=== PATIENT | female | born 1930 | race Caucasian/White ===

== ENCOUNTER 2016-03-20 15:42 | Outpatient (CLI) | payer MEDICARE ==
[2016-03-20 16:14] LABS: ALT (SGPT) 15 U/L (0-55); AST (SGOT) 21 U/L (5-34); Alkaline Phosphatase 76 U/L (40-150); Anion Gap 15 mmol/L (10-20); BUN (Urea Nitrogen) 32 mg/dL (9.8-20.1); Bilirubin, Total 0.5 mg/dL (0.2-1.2); Calc. Creatinine Clearance 0 mL/min (70-130); Calcium 9.2 mg/dL (7.8-10.44); Carbon Dioxide 27 mmol/L (23-31); Chloride 104 mmol/L (98-107); Estimated GFR-MDRD 39; Globulin 3.3 g/dL (2.4-3.5); Magnesium 1.9 mg/dL (1.6-2.6); Protein, Total 7.3 g/dL (5.8-8.1)
== END 2016-03-20 15:43 | disposition home or self-care (01) ==
LOC: NAV LAB 15:42
PROVIDERS: ATTEND Family Medicine
DX: E21.0 Primary hyperparathyroidism (principal)
CPT/HCPCS: 36415; 80053; 83735; 84100

== ENCOUNTER 2016-05-04 16:15 | Outpatient (CLI) | payer MEDICARE ==
[2016-05-04 16:49] LABS: Anion Gap 15 mmol/L (10-20); BUN (Urea Nitrogen) 29 mg/dL (9.8-20.1); Calc. Creatinine Clearance 0 mL/min (70-130); Calcium 9.1 mg/dL (7.8-10.44); Carbon Dioxide 27 mmol/L (23-31); Chloride 105 mmol/L (98-107); Estimated GFR-MDRD 40; Magnesium 1.8 mg/dL (1.6-2.6); Phosphorus 3.4 mg/dL (2.3-4.7)
== END 2016-05-04 16:16 | disposition home or self-care (01) ==
LOC: NAV LAB 16:15
PROVIDERS: ATTEND Family Medicine
DX: E89.2 Postprocedural hypoparathyroidism (principal); E21.0 Primary hyperparathyroidism; E83.51 Hypocalcemia; E83.42 Hypomagnesemia
CPT/HCPCS: 36415; 80048; 83735; 84100

== ENCOUNTER 2016-05-31 18:45 | Outpatient (CLI) | payer MEDICARE ==
[2016-05-31 19:19] LABS: Anion Gap 16 mmol/L (10-20); BUN (Urea Nitrogen) 35 mg/dL (9.8-20.1); Calc. Creatinine Clearance 0 mL/min (70-130); Calcium 9.3 mg/dL (7.8-10.44); Carbon Dioxide 28 mmol/L (23-31); Chloride 103 mmol/L (98-107); Estimated GFR-MDRD 35; Glucose 98 mg/dL (83-110); Magnesium 1.7 mg/dL (1.6-2.6); Phosphorus 3.8 mg/dL (2.3-4.7); Potassium 4.6 mmol/L (3.5-5.1); Sodium 142 mmol/L (136-145)
== END 2016-05-31 18:46 | disposition home or self-care (01) ==
LOC: NAV LAB 18:45
PROVIDERS: ATTEND Family Medicine
DX: E89.2 Postprocedural hypoparathyroidism (principal)
CPT/HCPCS: 36415; 80048; 83735; 84100

== ENCOUNTER 2016-06-13 14:41 | Outpatient (CLI) | payer MEDICARE | END 2016-06-13 14:42 | disposition home or self-care (01) | LOC: NAV LAB 14:41 | PROVIDERS: ATTEND Family Medicine | DX: E89.2 Postprocedural hypoparathyroidism (principal) | CPT/HCPCS: 36415; 83970 ==

== ENCOUNTER 2016-06-28 19:03 | Outpatient (CLI) | payer MEDICARE ==
[2016-06-28 19:37] LABS: #Basophils 0.1 thou/uL (0.0-0.2); #Eosinphils 0.1 thou/uL (0.0-0.7); #Monocytes 0.5 thou/uL (0.11-0.59); %Basophils 1.6 % (0.0-1.0); %Eosinophils 2.3 % (0.0-10.0); %Lymphocytes 35.5 % (21.0-51.0); %Monocytes 7.9 % (0.0-10.0); %Neutrophils 52.7 % (42.0-75.0); Hemoglobin 12.3 g/dL (12.0-16.0); Mean Corpuscular HGB CONC 32.7 g/dL (32.0-36.0); Mean Corpuscular Hemoglobin 30.7 pg (27.0-31.0); Mean Corpuscular Volume 94.1 fl (81.0-99.0); Mean Platelet Volume 8.1 fL (7.4-10.4); Platelet Count 208 thou/uL (130-400); RBC Distribution Width 12.7 % (11.5-14.5); Red Blood Cell (RBC) Count 4.02 mill/uL (4.20-5.40); White Blood Cell (WBC) Count 5.7 thou/uL (4.8-10.8)
[2016-06-28 19:57] LABS: Anion Gap 17 mmol/L (10-20); BUN (Urea Nitrogen) 30 mg/dL (9.8-20.1); Calc. Creatinine Clearance 0 mL/min (70-130); Calcium 9.6 mg/dL (7.8-10.44); Carbon Dioxide 26 mmol/L (23-31); Chloride 104 mmol/L (98-107); Estimated GFR-MDRD 38; Glucose 90 mg/dL (83-110); Iron 77 ug/dL (50-170); Potassium 4.5 mmol/L (3.5-5.1); Sodium 142 mmol/L (136-145)
[2016-06-29 18:17] LABS: Iron Binding Capacity, Total 368 mcg/dL (265-497)
[2016-06-29 18:28] LABS: Creatinine, Urine 73.17 mg/dL (47-110); Potassium, Urine 68.1 mmol/L
[2016-06-29 19:30] LABS: Folate (Folic Acid) 16.4 ng/mL (7.0-31.4)
[2016-06-29 19:33] LABS: Ferritin 27.4 ng/mL (10-291)
[2016-07-01 08:21] LABS: Antinuclear AB Positive (Negative); Smith Antibodies <0.2 AI (0.0-0.9); U1RNP/snRNP IGG Autoabs <0.2 AI (0.0-0.9)
== END 2016-06-28 19:04 | disposition home or self-care (01) ==
LOC: NAV LAB 19:03
PROVIDERS: ATTEND Family Medicine
DX: N18.9 Chronic kidney disease, unspecified (principal); D63.1 Anemia in chronic kidney disease; R35.8 Other polyuria; R76.0 Raised antibody titer
CPT/HCPCS: 36415; 80048; 82570; 82607; 82728; 82746; 83540; 83550; 83930; 83935; 84133; 84300; 85025; 86038

== ENCOUNTER 2016-09-25 19:45 | Outpatient (CLI) | payer MEDICARE ==
[2016-09-25 20:27] LABS: Anion Gap 15 mmol/L (10-20); BUN (Urea Nitrogen) 37 mg/dL (9.8-20.1); Calc. Creatinine Clearance 0 mL/min (70-130); Calcium 9.2 mg/dL (7.8-10.44); Carbon Dioxide 26 mmol/L (23-31); Chloride 104 mmol/L (98-107); Estimated GFR-MDRD 41; Glucose 85 mg/dL (83-110); Magnesium 1.7 mg/dL (1.6-2.6); Phosphorus 3.5 mg/dL (2.3-4.7); Potassium 4.1 mmol/L (3.5-5.1); Sodium 141 mmol/L (136-145)
== END 2016-09-25 19:46 | disposition home or self-care (01) ==
LOC: NAV LAB 19:45
PROVIDERS: ATTEND Family Medicine
DX: E21.0 Primary hyperparathyroidism (principal); E89.2 Postprocedural hypoparathyroidism; R53.1 Weakness
CPT/HCPCS: 80048; 83735; 83880; 84100

== ENCOUNTER 2016-10-13 18:10 | Outpatient (CLI) | payer MEDICARE ==
[2016-10-13 18:33] LABS: #Basophils 0.1 thou/uL (0.0-0.2); #Eosinphils 0.1 thou/uL (0.0-0.7); #Monocytes 0.5 thou/uL (0.11-0.59); #Neutrophils 2.6 thou/uL (1.40-6.50); %Basophils 1.4 % (0.0-1.0); %Eosinophils 2.7 % (0.0-10.0); %Monocytes 9.9 % (0.0-10.0); Mean Corpuscular Hemoglobin 30.8 pg (27.0-31.0); Mean Corpuscular Volume 93.1 fl (81.0-99.0); Mean Platelet Volume 7.9 fL (7.4-10.4); Platelet Count 188 thou/uL (130-400); RBC Distribution Width 12.2 % (11.5-14.5); Red Blood Cell (RBC) Count 3.89 mill/uL (4.20-5.40); White Blood Cell (WBC) Count 5.4 thou/uL (4.8-10.8)
== END 2016-10-13 18:11 | disposition home or self-care (01) ==
LOC: NAV LAB 18:10
PROVIDERS: ATTEND Family Medicine
DX: R53.1 Weakness (principal)
CPT/HCPCS: 36415; 85025